=== PATIENT | female | born 1960 | race Caucasian/White ===

== ENCOUNTER 2024-03-22 09:04 | Outpatient (OUT) | payer MEDICAID, SELFPAY ==
--- NOTE | 2024-03-22 09:19 | MR_ITS ---
The [address] [address] Patient Name: ELADIA CORDOBA MRN: [facility]:[id number] date: 1960 Sex: F Assigned Patient Location: LAB Current Patient Location: LAB Accession/Order Number: [id number] Exam Date: 03/22/2024 09:55 Report Date: 03/22/2024 11:15 At the request of: ANDREAS FREED Procedure: MR head/brain wo/w con EXAM: MR head/brain wo/w con HISTORY: insomnia G47.00, visual hallucination R44.1 COMPARISON: None. Technique: Multiplanar T1-weighted, axial FLAIR, and susceptibility images were obtained without intravenous contrast. Following intravenous gadolinium-based contrast administration, axial T2-weighted, diffusion, and T1-weighted images (in multiple planes) were obtained. Contrast: 19 mL Dotarem Findings: There is no mass effect, midline shift, or evidence of intracranial hemorrhage. The ventricles are proportionate to the cerebral sulci. Normal major vascular intracranial flow-voids. There is [id number] generalized cerebral atrophy. Mild T2/FLAIR white matter high signal foci , primarily seen clustered in the left frontal lobe cunningham radiata, are nonspecific, however suggesting sequelae of small vessel ischemic change/leukoaraiosis. Postcontrast images demonstrate no abnormal intracranial enhancement. No abnormality of the skull marrow signal. The visualized portions of paranasal sinuses, and mastoid air cells are relatively clear. The orbits are grossly unremarkable. MR/MR head/brain wo/w con Impression: Age-related changes, as above, without acute intracranial pathology or abnormal enhancement. Electronically authenticated by: MATT VALENTINO Date: 03/22/2024 11:15
[2024-03-22 09:21] LABS: Basophils Percent Auto 0.9 % (0.2-2.0); Eosinophils Absolute Auto 0.3 10^3/uL (0.0-0.7); Eosinophils Percent Auto 7.2 % (0.9-7.0); Hematocrit 32.6 % (36.0-48.0); Immature Granulocytes Abs Auto 0.02 10^3/uL (0.00-0.03); Immature Granulocytes Pct Auto 0.4 % (0.0-0.5); Lymphocytes Absolute Auto 2.2 10^3/uL (1.2-3.8); Lymphocytes Percent Auto 47.4 % (20.5-60.0); Mean Corpuscular HGB Conc 30.7 g/dL (29.9-35.2); Mean Corpuscular Hemoglobin 27.3 pg (26.7-34.0); Mean Corpuscular Volume 89.1 fL (81.0-99.0); Mean Platelet Volume 8.7 fL (9.5-13.5); Monocytes Absolute Auto 0.3 10^3/uL (0.3-0.8); Monocytes Percent Auto 7.2 % (1.7-12.0); Neutrophils Absolute Auto 1.7 10^3/uL (1.4-6.5); Neutrophils Percent Auto 36.9 % (43.0-75.0); Platelet Count 333 10^3/uL (150-450); Red Blood Count 3.66 10^6/uL (4.20-5.40); Red Cell Distribution Width 14.2 % (11.0-15.0); White Blood Count 4.6 10^3/uL (4.0-11.0)
[2024-03-22 09:45] LABS: Alanine Aminotransferase 37 U/L (14-59); Albumin Globulin Ratio 0.7; Albumin Level 2.8 g/dL (3.4-5.0); Alkaline Phosphatase 118 U/L (46-116); Aspartate Amino Transferase 29 U/L (15-37); BUN Creatinine Ratio 11.2; Bilirubin Total 0.3 mg/dL (0.2-1.0); Calcium 8.8 mg/dL (8.5-10.1); Carbon Dioxide 26.1 mmol/L (21.0-32.0); Chloride 103 mmol/L (98-107); Chol HDL Ratio 3.5; Cholesterol 268 mg/dL (<=200); Estimated GFR (African America 42 (>=60); Estimated GFR (Non-African Ame 35 (>=60); Free T3 2.08 pg/mL (2.18-3.98); Globulin 3.8 g/dL; Glucose 187 mg/dL (74-106); HDL Cholesterol 77 mg/dL (40-60); Potassium 4.1 mmol/L (3.5-5.1); Sodium 136 mmol/L (136-145); Thyroid Stimulating Hormone 2.828 uIU/mL (0.358-3.740); Total Protein 6.6 g/dL (6.4-8.2); Triglycerides 220 mg/dL (<=150)
[2024-03-22 10:39] LABS: Estimated Average Glucose 180 mg/dL; Glycohemoglobin A1C 7.9 % (4.5-6.2)
[2024-03-23 10:09] LABS: Insulin 4.9 uIU/mL (2.6-24.9)
== END 2024-03-22 09:05 | disposition home or self-care (01) ==
PROVIDERS: PCP Family Medicine; Visit Provider Family Medicine
DX: G47.00 Insomnia, unspecified (principal); R44.2 Other hallucinations; R44.1 Visual hallucinations; R44.0 Auditory hallucinations; E78.5 Hyperlipidemia, unspecified; R73.9 Hyperglycemia, unspecified; Z12.12 Encounter for screening for malignant neoplasm of rectum; D64.9 Anemia, unspecified; E55.9 Vitamin D deficiency, unspecified
CPT/HCPCS: 36415; 70553; 80053; 80061; 82306; 83036; 83525; 83540; 84436; 84443; 84481; 85025; A9575

== ENCOUNTER 2024-05-24 14:51 | Outpatient (OUT) | payer MEDICAID, SELFPAY | END 2024-05-24 14:52 | disposition home or self-care (01) | LOC: PST 14:51 | PROVIDERS: PCP Family Medicine; Visit Provider Surgery | DX: Z01.818 Encounter for other preprocedural examination (principal); D50.9 Iron deficiency anemia, unspecified ==

== ENCOUNTER 2024-05-26 07:19 | Day surgery (SDC) | payer MEDICAID, SELFPAY ==
--- NOTE | 2024-05-26 | OP_ITS ---
OPERATION DATE: 05/26/2024 PREOPERATIVE DIAGNOSIS: Iron deficiency anemia. POSTOPERATIVE DIAGNOSIS: Distal esophagitis and poor colon prep. PROCEDURE: EGD and attempted colonoscopy. Patient was found to have formed stool within the rectum. Scope was unable to be advanced, so it will be rescheduled. SURGEON: Gerson Conrad M.D. ANESTHESIA: Monitored anesthesia care. ESTIMATED BLOOD LOSS: Zero. INDICATIONS AND CONSENT: Patient is a 63-year-old female with history of iron deficiency anemia. No GI complaints. She does take diclofenac daily. Indications, risks, benefits, alternatives of proceeding with EGD and colonoscopy were explained extensively to the patient, including the risks of bleeding, aspiration, esophageal/gastric or colonic perforation or anesthetic complications. All of her questions were answered. Informed consent was obtained. PROCEDURE: Patient brought to the operating room, placed in the left lateral decubitus position. Monitored anesthesia care was provided. Bite block was placed in the patient?s mouth. Scope was inserted into the oropharynx. Under direct visualization, it was advanced into the esophagus, past the cricopharyngeus, down to the small gastric pouch, which the gastric jejunostomy was widely patent. There was no ulceration or scarring. There was a very small gastric pouch. There was noted to be distal esophagitis without Eli?s changes with some exudate in the distal esophagus as well. The remainder of the esophagus was unremarkable. The scope was then withdrawn. Patient tolerated procedure well, was then positioned for colonoscopy. Rectal exam was performed, which revealed formed, hard stool within the rectum. This was removed. The scope was attempted to be advanced, but there was formed stool that prohibited advancement of the scope; therefore, that procedure was abandoned. She will be rescheduled for colonoscopy. Patient tolerated procedure well, was sent to recovery room in good condition. CC: Emmanuel Butt M.D. KATIE
[2024-05-26 07:35] VITALS: BP 166/96; PULSE 106; TEMP 36.9; O2SAT 98; BMI 35.8
[2024-05-26 07:45] LABS: Amphetamine Screen Urine NEGATIVE (NEGATIVE); Barbiturates Screen Urine NEGATIVE (NEGATIVE); Benzodiazepines Screen Urine NEGATIVE (NEGATIVE); Buprenorphine Screen Urine POSITIVE (NEGATIVE); Cannabinoid Screen Urine NEGATIVE (NEGATIVE); Cocaine Screen Urine NEGATIVE (NEGATIVE); Methadone Screen Urine NEGATIVE (NEGATIVE); Methamphetamines Screen Urine NEGATIVE (NEGATIVE); Opiate Screen Urine NEGATIVE (NEGATIVE); Oxycodone Screen Urine NEGATIVE (NEGATIVE); Phencyclidine Screen Urine NEGATIVE (NEGATIVE); Tricyclic Antidepressant Urine NEGATIVE (NEGATIVE)
[2024-05-26] MEDS: LACTATED RINGER'S SOLUTION 1,000 ML 50 ML IV (07:58)
[2024-05-26 10:02] VITALS: BP 117/89; PULSE 91; TEMP 36.2; O2SAT 97
[2024-05-26 10:17] VITALS: BP 141/95; PULSE 91
[2024-05-26 10:32] VITALS: BP 123/86; PULSE 77; O2SAT 99
== END 2024-05-26 10:32 | disposition home or self-care (01) ==
PROVIDERS: Anesthesiology; PCP Family Medicine; Visit Provider Surgery
PROC: (CPT 00813; principal; 2024-05-26 08:35)
DX: D50.9 Iron deficiency anemia, unspecified (principal); K20.90 Esophagitis, unspecified without bleeding; Z98.84 Bariatric surgery status; Z87.891 Personal history of nicotine dependence; E11.9 Type 2 diabetes mellitus without complications; Z79.84 Long term (current) use of oral hypoglycemic drugs; E03.9 Hypothyroidism, unspecified; E78.5 Hyperlipidemia, unspecified; F19.11 Other psychoactive substance abuse, in remission; E66.9 Obesity, unspecified; Z68.35 Body mass index [BMI] 35.0-35.9, adult
CPT/HCPCS: 00813; 43235; 45378; 80307; J2704

== ENCOUNTER 2024-09-02 14:14 | Outpatient (OUT) | payer MEDICAID, SELFPAY ==
--- NOTE | 2024-09-01 08:26 | V.VEINS.HP ---
Vital Signs 09/02/24 14:34 Height 5 ft 4 in Weight 97.522 kg BMI 36.9 Varicose Veins Patient is a 64 year old female in this day as a referral from Dr. Butt with c/o bilateral leg edema, tenderness and discoloration. 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 Patient has worn bilateral leg knee high compression stockings for >3years with some relief. Patient rates pain at a 5 on a scale of 1-10. Patient has no history of DVT, nor family history of varicose veins, nor history of varicose vein treatments. Troy Christina MD personally performed the services described in this documentation, as scribed by Ehsan Andrade RN in my presence and it is both accurate and complete. IEhsan RN, am scribing for, and in the presence of, Dr. Troy Peck and in the presence of the patient. . thigh: bilateral (symptoms right > left foot), knee: bilateral, calf: bilateral, ankle: bilateral and whelan: bilateral aching, cramping, dull and tender 5 7 months Worsened in recent months: Yes standing elevating extremities and compression stockings Reports muscle spasms of leg, erythema, fatigue, heaviness, limb pain, edema and leg edema History of lower extremity trauma: No Superficial thrombophlebitis: No Family history of varicose veins: no Has patient had previous lower extremity venous surgery: No Patient has previously received the following treatment(s) for lower extremity varicose veins: Reports none Does patient have a history of : yes Does patient intend to have future pregnancies: no Has patient had lower extremity venous scan with relux testing: No Support hose used: Yes Problems walking or doing physical activity: Yes How does it affect you: painful ambulation resulting in frequent breaks Review of Systems ROS Narrative Troy Christina MD personally performed the services described in this documentation, as scribed by Ehsan Andrade RN in my presence and it is both accurate and complete. Ehsan Christina RN, am scribing for, and in the presence of, Dr. Troy Peck and in the presence of the patient. Status of ROS 10 or more systems reviewed and unremarkable except as noted in history and below Cardiovascular Reports: edema Integumentary/Breast Reports: itching, redness, skin pain, skin tenderness, skin swelling and changes in skin color Neurological Reports: weakness in extremities Hematologic/Lymphatic Reports: easy bruising and easy bleeding PFSH PFSH Medical History (Updated 09/02/24 @ 14:44 by Ehsan Andrade) Bilateral leg edema ?R60.0 - Localized edema (ICD-10) Vitamin B12 deficiency ?E53.8 - Deficiency of other specified B group vitamins (ICD-10) Visual hallucinations ?R44.1 - Visual hallucinations (ICD-10) Olfactory hallucinations ?R44.2 - Other hallucinations (ICD-10) Narcotic abuse ?F11.10 - Opioid abuse, uncomplicated (ICD-10) Iron deficiency anemia ?D50.9 - Iron deficiency anemia, unspecified (ICD-10) Insomnia ?G47.00 - Insomnia, unspecified (ICD-10) Impaired renal function ?N28.9 - Disorder of kidney and ureter, unspecified (ICD-10) Hypothyroidism ?E03.9 - Hypothyroidism, unspecified (ICD-10) Hypercholesterolemia ?E78.00 - Pure hypercholesterolemia, unspecified (ICD-10) Nephrolithiasis ?N20.0 - Calculus of kidney (ICD-10) Fibrocystic breast ?N60.19 - Diffuse cystic mastopathy of unspecified breast (ICD-10) Diabetes ?E11.9 - Type 2 diabetes mellitus without complications (ICD-10) Obesity ?E66.9 - Obesity, unspecified (ICD-10) Auditory hallucination ?R44.0 - Auditory hallucinations (ICD-10) Anxiety and depression ?F41.9 - Anxiety disorder, unspecified (ICD-10) ?F32.A - Depression, unspecified (ICD-10) Anemia ?D64.9 - Anemia, unspecified (ICD-10) Surgical History (Updated 07/03/24 @ 09:48 by Celina Muhammad) H/O cystoscopy ?Z98.890 - Other specified postprocedural states (ICD-10) H/O gastric bypass ?Z98.84 - Bariatric surgery status (ICD-10) Family History (Updated 05/21/24 @ 07:57 by Sol Rea, MIKY) Other Malignant neoplasm of breast (female) Parkinsons disease Social History (Updated 05/24/24 @ 14:18 by Sol Rea RN) Within the past year, how often did you have a drink containing alcohol: never Score interpretation: A score less than 3 is consistent with normal alcohol consumption. Smoking status: Former smoker Second hand tobacco smoke exposure: Yes Non-prescribed substance use: denies use Non-prescribed substance use details: does have previous narcotic abuse history Previous occupational history: homemaker Highest level of school completed/degree received: high school graduate Meds Home Medications and Allergies Home Medications ?Medication ?Instructions ?Recorded ?Confirmed ?Type buprenorphine 8 mg-naloxone 2 mg 1 film buccal DAILY 05/21/24 07/03/24 History sublingual film (Suboxone) bupropion HCl 150 mg 24 hr tablet, 150 mg PO BID 05/21/24 07/03/24 History extended release diclofenac sodium 75 mg 75 mg PO BID PRN pain 05/21/24 07/03/24 History tablet,delayed release ferrous sulfate 325 mg (65 mg 325 mg PO BID 05/21/24 07/03/24 History iron) tablet (FeroSul) metformin 500 mg tablet 500 mg PO BID 05/21/24 07/03/24 History olanzapine 10 mg tablet (Zyprexa) 10 mg PO DAILY 05/21/24 07/03/24 History venlafaxine 150 mg 150 mg PO DAILY 05/21/24 07/03/24 History capsule,extended release 24 hr Allergies Allergy/AdvReac Type Severity Reaction Status Date / Time No Known Drug Allergies Allergy Verified 05/26/24 07:56 Exam Narrative Exam Narrative: Redness noted to right mid lower leg anterior to posterior, patient states area often seeps Troy Christina MD personally performed the services described in this documentation, as scribed by Ehsan Andrade RN in my presence and it is both accurate and complete. Ehsan Christina RN, am scribing for, and in the presence of, Dr. Troy Peck and in the presence of the patient. Constitutional Documenting provider has reviewed patient's vital signs: yes Common normals: oriented x3 Nutritional appearance: overweight Cardio Peripheral pulses: posterior tibial pulses present and dorsalis pedis pulses present Extremity Common normals: normal capillary refill General: calf tenderness and edema Right lower extremity: lower leg Right lower leg: inspection and palpation Left lower extremity: lower leg Left lower leg: inspection and palpation Neuro Common normals: oriented x3 Assessment and Plan Assessment and Plan Plan Patient to Troy Christina MD personally performed the services described in this documentation, as scribed by Ehsan Andrade RN in my presence and it is both accurate and complete. I, Ehsan Andrade RN, am scribing for, and in the presence of, Dr. Troy Peck and in the presence of the patient.
--- NOTE | 2024-09-01 08:27 | W.VEIN ---
Discharge Plan Discharge Disposition: Home, Self-Care Follow Up Appointments: f/u as necessary per Dr. Butt Print Language: Bengali Discharge Date/Time: 09/02/24 15:27
--- NOTE | 2024-09-02 14:27 | VEIN_ITS ---
Patient Name: ELADIA CORDOBA MR#: [id number] : 1960 Exam Date: 09/02/2024 Ordering Doctor: DR Emmanuel Butt . RADIOLOGY REPORT PROCEDURE: VC EXT VENOUS REFLUX TRESA LMTD COMPARISON: None. INDICATIONS: R60.0 Edema TECHNIQUE: Duplex imaging of the lower extremity to assess the deep and superficial venous system for the presence of deep or superficial venous incompetence and to document the location and severity of disease. The study includes evaluation of the great saphenous vein (GSV), anterior accessory saphenous vein (AASV) and small saphenous vein (SSV). Patient scanned in reverse Trendelenburg and standing. FINDINGS: RIGHT LOWER EXTREMITY: Saphenofemoral Junction Reflux: Yes 6.8mm 1.3 sec GSV: Diam (mm) Reflux/ Time (sec) Proximal Thigh 7.1 Yes 1.0 Mid Thigh 5.4 No Distal Thigh 4.7 Yes 0.4 Prox Calf 4.3 No Mid Calf 3.6 Yes 0.6 Saphenopopliteal Junction Reflux: 4.5mm No SSV: Proximal Calf 4.8 Yes 0.3 Mid Calf 4.2 No AASV: Proximal Thigh 4.6 Yes 0.5 Mid Thigh 3.1 Yes 0.4 Distal Thigh Thrombi: No acute or chronic thrombus. Compressibility: Normal. Flow: Minimal deep venous reflux. Preforator: No significant perforators. Tech Note: Marked edema noted in lower leg. Incompetent varicose vein proximal medial lower leg measures 4.3 mm with 0.7s reflux. Varicose vein mid medial thigh measures 4.1 mm with 0.6s reflux. LEFT LOWER EXTREMITY: Saphenofemoral Junction Reflux: Yes 8.7 mm 0.6 sec GSV: Diam (mm) Reflux/Time (sec) Proximal Thigh 9.9 Yes 0.8 Mid Thigh 4.7 Yes 0.8 Distal Thigh 4.9 Yes 0.5 Prox Calf 5.0 No Mid Calf 2.2 Yes 0.3 Saphenopopliteal Junction Relux: 2.4 mm Yes 1.4 SSV: Proximal Calf 2.0 Yes 0.4 Mid Calf 3.0 No AASV: Proximal Thigh 5.5 Yes 4.8 Mid Thigh 3.3 Yes 0.5 Distal Thigh Thrombi: No acute or chronic thrombus. Compressibility: Normal. Flow: Minimal deep venous reflux. Qa Software Test Engineer: No significant perforators. Tech Note: Marked edema noted in lower leg. Duplicate femoral vein. Incompetent varicose vein distal medial thigh measures 5.2 mm with 0.5s reflux. CONCLUSION: 1. Mild bilateral great saphenous vein reflux with dilatation and saphenofemoral junction reflux 2. Moderate anterior accessory saphenous vein with dilatation 3. Bilateral varicose veins Dictated by: Troy Peck MD on 09/02/2024 at 16:10 Approved by: Troy Peck MD on 09/02/2024 at 16:23
[2024-09-02 14:34] VITALS: BMI 36.9
== END 2024-09-02 15:27 | disposition home or self-care (01) ==
LOC: VC 14:20
PROVIDERS: PCP Family Medicine; Visit Provider Family Medicine
DX: R60.0 Localized edema (principal)
CPT/HCPCS: 93970

== ENCOUNTER 2025-07-02 18:25 | Emergency (ER) | payer MEDICAID, SELFPAY ==
--- OUTSIDE RECORDS SUMMARY | 2025-03-02 10:15 | XMS_ITS ---
Author Organization The [facility] in [place] Address [address] [place] [address] Care Team Providers Care Residential Care Officer Name Role Phone Kole Butt Primary Care Provider Allergies No Known Allergies REASON FOR VISIT red sore leg Medications Medication SIG (Take, Route, Frequency, Duration) Notes Start Date End Date Status Cephalexin 500 MG 2 tabs Orally bid fo r 10 days 03/02/2025 Active ZyPREXA 10 MG 1 tablet Orally Once a day for 30 days 02/20/2024 Active Venlafaxine HCl ER 150 mg TAKE 1 CAPSULE BY MOUTH ONCE DAILY for 90 Active Valium 5 MG 1-2 tablet Orally on ce for 1 days 03/19/2024 Active Trulicity 0.75 MG/0.5ML Inject 0.5ml Sub cutaneous once weekly for 28 days Active Doxycycline Monohydrate 100 MG 1 capsule Orally bid for 10 days 03/02/2025 Active Triamcinolone Acetonide 0.1 % 1 application Externally Twice a day for 30 02/20/2024 Active Suboxone 8-2 MG 1 film under the ton daya and allow to dissolve Sublingual Once a day Active metFORMIN HCl 500 mg TAKE 1 TABLET BY MO UTH TWICE DAILY for 30 Active FeroSul 325 (65 Fe) MG TAKE 1 TABLET BY MOUTH TWICE DAILY for 30 Active Cefdinir 300 MG 2 capsule Orally onc e a day for 10 days 08/19/2024 Active buPROPion HCl ER (SR) 150 MG 1 tablet Orally twice daily for 30 days 08/27/2023 Active Rexulti 2 MG 1 tablet Orally Once a day for 30 day(s) 03/02/2025 Active Diclofenac Sodium 75 MG 1 tablet as need ed Orally Twice a day for 30 days Active Cyanocobalamin 1000 MCG/ML inject 1ml SQ once a month Active Accu-Chek Guide - as directed In Vitro bdi 024 Active Social History Tobacco Use: Social History Observation Description Date Details (start date - stop date) Former Smoker NA - 12/31/1995 Tobacco Use/Smoking Question Answer Notes Patient is a former smoker When did you stop smoking? 12/31/1995 How long has it been since you last smoked? > 10 years AUDIT-C (Standard) Question Answer Notes Did you have a drink containing alcohol in the p ast year? No Points 0 Interpretation Negative Vital Signs Blood pressure systolic 138 mm Hg 03/02/20 25 Blood pressure diastolic 82 mm Hg 025 Height 64 in 03/02/2025 Weight 226.0 lbs 03/02/2025 BMI 38.79 kg/m2 03/02/2025 Encounters Encounter Location Date Provider Diagnosis [address] [place] [address] 03/02/2025 Kole Butt Insomnia G47.00 and Anxiety and depression F41.9 Assessments Encounter Date Diagnosis (ICD Code) Assessment Notes Treatment Notes Treatment Clinical Notes Section Notes 03/02/2025 Insomnia (ICD-10 - G47.00) 03/02/2025 Anxiety and depression (ICD-10 - F41.9) Plan Of Treatment Medication Medication Name Sig Start Date Stop Date Notes Cephalexin 500 MG 2 tabs Orally bid fo r 10 days 03/02/2025 Doxycycline Monohydrate 100 MG 1 capsule Orally bid for 10 days 03/02/2025 Rexulti 2 MG 1 tablet Orally Once a day for 30 day(s) 03/02/2025 Progress Notes * Effie CORDOBA ADOB:1960 (64 yo F)Acc No.[id number]:03/02/2025 Progress Note Patient: Effie STOVER Provider: Jacek Butt ([facility])MD :1960 A ge:64 Y S ex:Female Date:03/02/2025 Address:[address] [place] [address] [address], [place], [id number] Check In:02:03 PM ESTCheck O ut:02:59 PM EST Subjective: * Chief Complaints: * R ed sore leg * HPI: D epression Screening: PHQ-2 (2015 Edition) L ittle interest or pleasure in doing things??Several days F eeling down, depressed, or hopeless? S everal T otal Score 2 not tapan to tolerate amauri olazapine - needs change to rexulti. D epression Screening: PHQ-9 L ittle interest or pleasure in doing things?Several days F eeling down, depressed, or hopeless S everal T rouble falling or staying asleep, or sleeping too much M ore than half the days F eeling tired or having little energy M ore than half the days P oor appetite or overeating M ore than half the days F eeling bad about yourself or that you are a failure, or have let yourself or your family down S ever T rouble concentrating on things, such as reading the newspaper or watching television N ot at all M oving or speaking so slowly that other people could have noticed; or the opposite, being so fidgety or restless that you have been moving around a lot more than usual S everal T houghts that you would be better off or of hurting yourself in some way N ot at all T otal Score 1 0 I nterpretation M oderate Depression * ROS: E ENT: hearing changes d enies. v isual changes d enies.?non-healing mouth sores d enies. s wollen glands or neck lumps d enies. h oarseness d enies. s ore throat d enies. d ifficulty swallowing d enies. n ose bleeds d enies. n cammie congestion d enies. e ar ache d enies. e ar discharge?denies. r inging in ears d enies. l ight sensitivity d enies. e ye pain d enies. b lurring d enies. e ye irritation d enies. d ouble vision d enies.?vision loss d enies. G eneral/Constitutional: Sweats: D enies. F atigue d enies. S leep problems d enies. A norexia d enies. M alaise d enies. W eight loss d enies.?Fatigue or Weakness d enies. F ever or Chills d enies. C ardiovascular: Shortness of Breath w/lying flat d enies. L ightheadedness/dizziness d enies. C hest tightness/ heavy pressure d enies. S welling of legs, ankles, or feet d enies. W aking up with shortness of breath d enies. C hest pain denies. P alpitations d enies. W eight gain d enies. R espiratory: Chronic or frequent cough d enies. C oughing up blood?denies. D ifficulty breathing d enies. P roductive cough d enies. S noring?denies. S hortness of breath that awakens from sleep (PND) d enies. C hest pain d enies. S putum production d enies. W heezing d enies. M usculoskeletal: Joint pain d enies. J oint Fluid d enies. B ack pain d enies. K nee pain d enies. N branden pain d enies. J oint Stiffness d enies. M uscle cramps d enies. W eakness of muscles d enies. A rthritis d enies. M uscle aches d enies. P ain in shoulder(s) d enies. S wollen joints d enies. * Active Problem List G47.00 Insomnia Modified On:02/20/2024/U Status:confirmed M25.50 Arthralgia Modified On:07/25/2023/U Status:confirmed N20.0 Kidney stones Modified On:07/25/2023/U Status:confirmed R60.0 Edema leg Modified On:07/25/2023/U Status:confirmed N60.19 Fibrocystic breast Modified On:07/25/2023/U Status:confirmed F11.10 Narcotic abuse Modified On:07/25/2023/U Status:confirmed F41.9 Anxiety and depressi on Modified On:07/25/2023U Status:confirmed E78.00 Hypercholesteremia Modified On:07/25/2023U Status:confirmed E11.9 Controlled type 2 di abetes mellitus Modified On:07/25/2023U Status:confirmed G47.00 Insomnia, unspecifie d Modified On:03/24/2023U Status:confirmed R44.2 Olfactory hallucinat ion Modified On:02/20/2024U Status:confirmed R44.1 Visual hallucination Modified On:02/20/2024U Status:confirmed R44.0 Auditory hallucinati on Modified On:02/20/2024 Status:confirmed E03.9 Hypothyroidism, unsp ecified Modified On:03/22/2024 Status:confirmed K20.90 Esophagitis Modified On:05/31/2024U Status:confirmed I87.2 Venous reflux Modified On:09/03/2024 Status:confirmed * Medical History: * Surgical History: C ystoscopy with stent, Dr. Arroyo 02/06/18 Colonoscopy and EGD- Dr. Conrad 05/26/2024 * Hospitalization/Major Diagno stic Procedure: D enies Past Hospitalization * Family History: F ather: . M other: , breast cancer, diagnosed with Other malignant neoplasm of unspecified site. B rother(s): alive. S on(s): alive. D ángel(s): alive. 1 brother(s) . 1 son(s) , 1 daughter(s) - healthy. . * Social History: T obacco Use: T obacco Use/Smoking P atient is a f ormer smoker W hen did you stop smoking? 0 12/31/1995 H ow long has it been since you last smoked??> 10 years D rug/Alcohol: A DESI-C (Standard) D id you have a drink containing alcohol in the past year? N o P oints 0 I nterpretation N egative * Medications: T akingAccu-Chek Guide(Glucose Blood) - Strip as directed In Vitro bdi buPROPion HCl ER (SR) 150 MG Tablet Extended Release 12 Hour 1 tablet Orally twice daily Cefdinir 300 MG Capsule 2 capsule Orally once a day Cyanocobalamin 1000 MCG/ML Solution inject 1ml SQ once a month Diclofenac Sodium 75 MG Tablet Delayed Release 1 tablet as needed Orally Twice a day FeroSul(Ferrous Sulfate) 325 (65 Fe) MG Tablet TAKE 1 TABLET BY MOUTH TWICE DAILY metFORMIN HCl 500 mg Tablet TAKE 1 TABLET BY MOUTH TWICE DAILY Suboxone(Buprenorphine HCl-Naloxone HCl) 8-2 MG Film 1 film under the tongue and allow to dissolve Sublingual Once a day Triamcinolone Acetonide 0.1 % Cream 1 application Externally Twice a day Trulicity(Dulaglutide) 0.75 MG/0.5ML Solution Pen-injector Inject 0.5ml Subcutaneous once weekly Valium(diazePAM) 5 MG Tablet 1-2 tablet Orally once Venlafaxine HCl ER 150 mg Capsule Extended Release 24 Hour TAKE 1 CAPSULE BY MOUTH ONCE DAILY ZyPREXA 10 MG Tablet 1 tablet Orally Once a day Medication List reviewed and reconciled with the patientTaking Accu-Chek Guide(Glucose Blood) - Strip as directed In Vitro bdi Taking buPROPion HCl ER (SR) 150 MG Tablet Extended Release 12 Hour 1 tablet Orally twice daily Taking Cefdinir 300 MG Capsule 2 capsule Orally once a day Taking Cyanocobalamin 1000 MCG/ML Solution inject 1ml SQ once a month Taking Diclofenac Sodium 75 MG Tablet Delayed Release 1 tablet as needed Orally Twice a day Taking FeroSul(Ferrous Sulfate) 325 (65 Fe) MG Tablet TAKE 1 TABLET BY MOUTH TWICE DAILY Taking metFORMIN HCl 500 mg Tablet TAKE 1 TABLET BY MOUTH TWICE DAILY Taking Suboxone(Buprenorphine HCl-Naloxone HCl) 8-2 MG Film 1 film under the tongue and allow to dissolve Sublingual Once a day Taking Triamcinolone Acetonide 0.1 % Cream 1 application Externally Twice a day Taking Trulicity(Dulaglutide) 0.75 MG/0.5ML Solution Pen-injector Inject 0.5ml Subcutaneous once weekly Taking Valium(diazePAM) 5 MG Tablet 1-2 tablet Orally once Taking Venlafaxine HCl ER 150 mg Capsule Extended Release 24 Hour TAKE 1 CAPSULE BY MOUTH ONCE DAILY Taking ZyPREXA 10 MG Tablet 1 tablet Orally Once a day Medication List reviewed and reconciled with the patient * Allergies: N .K.D.A.no[Allergies Verified] Objective: * Vitals: W t:226.0lbs, Ht: 64 in, BP:138/82mm Hg, BMI:38.79Index, Ht-cm: 162.56 cm, Wt-k.51 kg. * Examination: P hysical Exam: GENERAL: w ell developed, well nourished, in no acute distress. HEAD: n ormocephalic/atraumatic. EYES: p upils equal, round and reactive to light, conjunctivae and sclerae normal. EARS: n o deformity or lesion of external ear, canals and TM appear normal bilaterally, TM's intact, not inflamed with normal light reflex, hearing grossly normal to conversational speech. NOSE: n o deformity, discharge, inflammation, or lesions.? MOUTH: m ucous membranes moist, normal oropharynx and posterior pharynx without lesions or exudates, tongue normal, dentition normal. NECK: n branden supple, no masses or palpable cervical nodes, trachea midline, thyroid without nodules, masses, tenderness, or enlargement. CHEST: n o chest wall deformity, no chest wall tenderness.? LUNGS: n ormal respiratory effort and clear to auscultation, no wheezes, rales, or rhonchi, good air exchange. CARDIO: r egular rate and rhythm, normal S1 and S2, nor murmur, rub, or gallop. PULSES: n ormal capillary refill. ABDOMEN: s oft, non-distended, non-tender, no masses. MUSCULOSKELETAL: n o deformity or scoliosis noted, normal range of motion, joints normal, no erythema, edema, effusion, or ecchymosis. EXTREMITY: n o clubbing, cyanosis, edema, or deformity with normal ROM in both upper and lower bilateral extremities. NEUROLOGIC: g rossly normal. SKIN: n o rashes, ulcerations, or suspicious lesions. LYMPH NODES: n o cervical adenopathy, nodes normal. MENTAL STATUS: a lert and oriented x3, normal mood and affect. Assessment: * Assessment: 1. I nsomnia - G47.00 (Primary) 2 . A nxiety and depression - F41.9 ? Plan: * Treatment: * Procedure Codes: * Preventive Medicine: Screenings/Counseling: B MN ACTION PLAN Above Normal BMI Follow-up D ietary management education, guidance, and counseling * * Sign off status: Completed Visit Status: C HK (Check Out) true * Provider: Jacek Butt ([facility])MD Date: 0 03/02/2025 Generated for Mason haro/Chetan/Marcusitting on: 0 07/02/2025 06:33 PM EDT History and Physical Notes * HPI (History of Present Illness) Category Sub-Category Detail Notes Category Not es Depression Screening PHQ-9 Little inte rest or pleasure in doing things: Several days Feeling down, depressed, or hopeless: Se veral days Trouble falling or staying a sleep, or sleeping too much: More than half the days Feeling tired or having little energy: M ore than half the days Poor appetite or overeating: More than h chcf the days Feeling bad about yourself o r that you are a failure, or have let yourself or your family down: Several days Trouble concentrating on thi ngs, such as reading the newspaper or watching television: Not at all Moving or speaking so slowly that other people could have noticed; or the opposite, being so fidgety or restless that you have been moving around a lot more than usual: Several days Thoughts that you would be b tanya off or of hurting yourself in some way: Not at all Total Score: 10 Interpretation: Moderate Depression Depression Screening PHQ-2 (2015 Edition) Little interest or pleasure in doing things?: Several days not tapan to tolerate amauri olazapine - needs change to rexulti Feeling down, depressed, or hopeless?: S everal days Total Score: 2 Examination Category Sub-Category Detail Notes Category Not es Physical Exam GENERAL: well developed, well nourished, in no acute distress HEAD: normocephalic/atraum atic EYES: pupils equal, round and reactive to light, conjunctivae and sclerae normal EARS: no deformity or lesi on of external ear, canals and TM appear normal bilaterally, TM's intact, not inflamed with normal light reflex, hearing grossly normal to conversational speech NOSE: no deformity, discha rge, inflammation, or lesions MOUTH: mucous membranes valentin st, normal oropharynx and posterior pharynx without lesions or exudates, tongue normal, dentition normal NECK: neck supple, no mass es or palpable cervical nodes, trachea midline, thyroid without nodules, masses, tenderness, or enlargement CHEST: no chest wall deform ity, no chest wall tenderness LUNGS: normal respiratory e ffort and clear to auscultation, no wheezes, rales, or rhonchi, good air exchange CARDIO: regular rate and rhy thm, normal S1 and S2, nor murmur, rub, or gallop PULSES: normal capillary ref ill ABDOMEN: soft, non-distended, non-tender, no masses RECTAL: MUSCULOSKELETAL: no deformity or scol iosis noted, normal range of motion, joints normal, no erythema, edema, effusion, or ecchymosis EXTREMITY: no clubbing, cyanosi s, edema, or deformity with normal ROM in both upper and lower bilateral extremities NEUROLOGIC: grossly normal SKIN: no rashes, ulceratio ns, or suspicious lesions LYMPH NODES: no cervical adenopat hy, nodes normal MENTAL STATUS: alert and oriented x 3, normal mood and affect
--- OUTSIDE RECORDS SUMMARY | 2025-03-16 10:50 | XMS_ITS ---
Author Organization The [facility] in [place] Address [address] [place] [address] Care Team Providers Care Life Skills Coordinator Name Role Phone Kole uBtt Primary Care Provider REASON FOR VISIT cellulitis- Rexulti Medications Medication SIG (Take, Route, Frequency, Duration) Notes Start Date End Date Status Doxycycline Monohydrate 100 MG 1 capsule Orally bid for 14 days 03/02/2025 Active Cephalexin 500 MG 2 tabs Orally bid fo r 14 days 03/02/2025 Active Rexulti 4 MG 1 tablet Orally Once a day for 30 days 03/02/2025 Active Encounters Encounter Location Date Provider Diagnosis [address] [address] 03/16/2025 Kole Butt Insomnia G47.00 Assessments Encounter Date Diagnosis (ICD Code) Assessment Notes Treatment Notes Treatment Clinical Notes Section Notes 03/16/2025 Insomnia (ICD-10 - G47.00) Plan Of Treatment Medication Medication Name Sig Start Date Stop Date Notes Doxycycline Monohydrate 100 MG 1 capsule Orally bid for 14 days 03/02/2025 Cephalexin 500 MG 2 tabs Orally bid fo r 14 days 03/02/2025 Rexulti 4 MG 1 tablet Orally Once a day for 30 days 03/02/2025 Progress Notes * Rosalie CORDOBA ADOB:1960 (64 yo F)Acc No.[id number]:03/16/2025 Patient: Rosalie STOVER :1960 A ge:64 Y S ex:Female Address:[address] [place] [address], [place], [address] * Refills Refill Rexulti Tablet, 4 MG, Orally, 30, 1 tablet, Once a day, 30 days, Refills=11 Refill Doxycycline Monohydrate Capsule, 100 MG, Orally, 28 Capsule, 1 capsule, bid, 14 days, Refills=0 Refill Cephalexin Tablet, 500 MG, Orally, 56 Tablet, 2 tabs, bid, 14 days, Refills=0 * true * Date: Generated for Mason haro/Chetan/Marcusitting on: 0 07/02/2025 06:34 PM EDT
--- OUTSIDE RECORDS SUMMARY | 2025-04-14 11:23 | XMS_ITS ---
Author Organization The [facility] in [place] Address [address] [place] [address] Care Team Providers Care Career Services Officer Name Role Phone Kole Butt Primary Care Provider REASON FOR VISIT Refill Medications Medication SIG (Take, Route, Fr equency, Duration) Notes Start Date End Date Status metFORMIN HCl 500 MG 1 tablet with a zan l Orally twice a day for 30 days Active FeroSul 325 (65 Fe) MG 1 tablet Orally t wice a day for 30 days Active Encounters Encounter Location Date Provider Diagnosis [address] [address] 04/14/2025 Kole Butt Plan Of Treatment Medication Medication Name Sig Start Date Stop Date Notes metFORMIN HCl 500 MG 1 tablet with a zan l Orally twice a day for 30 days FeroSul 325 (65 Fe) MG 1 tablet Orally t wice a day for 30 days Progress Notes * Effie CORDOBA ADOB:1960 (64 yo F)Acc No.[id number]:04/14/2025 Patient: Uma Effie GARCIA :1960 A ge:64 Y S ex:Female Address:[address] [place] [address] [address], [place], [address] * Refills Refill metFORMIN HCl Tablet, 500 MG, Orally, 60 Tablet, 1 tablet with a meal, twice a day, 30 days, Refills=11 Refill FeroSul Tablet, 325 (65 Fe) MG, Orally, 60 Tablet, 1 tablet, twice a day, 30 days, Refills=11 * true * Date: Generated for Mason haro/Chetan/[place]and[place] on: 0 07/02/2025 06:33 PM EDT
--- OUTSIDE RECORDS SUMMARY | 2025-07-02 18:34 | XMS_ITS | Patient Health Record ---
Author Organization [facility] in [place] Address [address] [place] [address] Care Team Providers Care Ocularist Name Role Phone Daquan Kole Primary Care Provider Allergies No Known Allergies Results Component Value Reference Range Notes UA DIP NONAUTO WO MICRO (810 02) - IN OFFICE Reviewed date:09/02/2024 08:43:03 PM Interpretation: Performing Lab: Notes/Report: COLOR yellow CLARITY cloudy GLUCOSE NEG BILIRUBIN NEG KETONE POS SPECIFIC GRAVITY 1.015 BLOOD NEG PH 5.0 PROTEIN POS UROBILINOGEN 0.2 NITRITE NEG LEUKOCYTE ESTERASE POS VC EXT Venous Reflux TRESA LMT D Reviewed date:09/02/2024 08:43:03 PM Interpretation: Performing Lab: Notes/Report: Source Facility: [place] [address] [place] [address] Vein Report Signed Patient: ELADIA CORDOBA MR#: [id number] : 1960 Acct:[id number] Age/Sex: 64 / F ADM Date: 09/02/24 Loc: VC Attending Dr: Emmanuel Butt M.D. Ordering Physician: Emmanuel Butt M.D. Date of Service: 09/02/24 Procedure(s): VC EXT Venous Reflux TRESA LMTD Accession Number(s): [id number] cc: Emmanuel Butt M.D. Patient Name: ELADIA CORDOBA MR#: [id number] : 1960 Exam Date: 09/02/2024 Ordering Doctor: DR Emmanuel Butt . RADIOLOGY REPORT PROCEDURE: VC EXT VENOUS REFLUX TRESA LMTD COMPARISON: None. INDICATIONS: R60.0 Edema TECHNIQUE: Duplex imaging of the lower extremity to assess the deep and superficial venous system for the presence of deep or superficial venous incompetence and to document the location and severity of disease. The study includes evaluation of the great saphenous vein (GSV), anterior accessory saphenous vein (AASV) and small saphenous vein (SSV). Patient scanned in reverse Trendelenburg and standing. FINDINGS: RIGHT LOWER EXTREMITY: Saphenofemoral Junction Reflux: Yes 6.8mm 1.3 sec GSV: Diam (mm) Reflux/ Time (sec) Proximal Thigh 7.1 Yes 1.0 Mid Thigh 5.4 No Distal Thigh 4.7 Yes 0.4 Prox Calf 4.3 No Mid Calf 3.6 Yes 0.6 Saphenopopliteal Junction Reflux: 4.5mm No SSV: Proximal Calf 4.8 Yes 0.3 Mid Calf 4.2 No AASV: Proximal Thigh 4.6 Yes 0.5 Mid Thigh 3.1 Yes 0.4 Distal Thigh Thrombi: No acute or chronic thrombus. Compressibility: Normal. Flow: Minimal deep venous reflux. Preforator: No significant perforators. Tech Note: Marked edema noted in lower leg. Incompetent varicose vein proximal medial lower leg measures 4.3 mm with 0.7s reflux. Varicose vein mid medial thigh measures 4.1 mm with 0.6s reflux. LEFT LOWER EXTREMITY: Saphenofemoral Junction Reflux: Yes 8.7 mm 0.6 sec GSV: Diam (mm) Reflux/Time (sec) Proximal Thigh 9.9 Yes 0.8 Mid Thigh 4.7 Yes 0.8 Distal Thigh 4.9 Yes 0.5 Prox Calf 5.0 No Mid Calf 2.2 Yes 0.3 Saphenopopliteal Junction Relux: 2.4 mm Yes 1.4 SSV: Proximal Calf 2.0 Yes 0.4 Mid Calf 3.0 No AASV: Proximal Thigh 5.5 Yes 4.8 Mid Thigh 3.3 Yes 0.5 Distal Thigh Thrombi: No acute or chronic thrombus. Compressibility: Normal. Flow: Minimal deep venous reflux. Nutrition Program Instructor: No significant perforators. Tech Note: Marked edema noted in lower leg. Duplicate femoral vein. Incompetent varicose vein distal medial thigh measures 5.2 mm with 0.5s reflux. CONCLUSION: 1. Mild bilateral great saphenous vein reflux with dilatation and saphenofemoral junction reflux 2. Moderate anterior accessory saphenous vein with dilatation 3. Bilateral varicose veins Dictated by: Troy Peck MD on 09/02/2024 at 16:10 Approved by: Troy Peck MD on 09/02/2024 at 16:23 Dictated By: Troy Peck M.D. Signed By: 09/02/244 DD/ 22 TD/TT: [employer]ter: [place] [address] Vein Report Signed Patient: ELADIA CORDOBA MR#: [id number] : 1960 Acct:[id number] Age/Sex: 64 / F ADM Date: 09/02/24 Loc: VC Attending Dr: Emmanuel Butt M.D. Ordering Physician: Emmanuel Butt M.D. Date of Service: 09/02/24 Procedure(s): VC EXT Venous Reflux TRESA LMTD Accession Number(s): [id number] cc: Emmanuel Butt M.D. Patient Name: ELADIA CORDOBA MR#: [id number] : 1960 Exam Date: 09/02/2024 Ordering Doctor: DR Emmanuel Butt . RADIOLOGY REPORT PROCEDURE: VC EXT VE NOUS REFLUX TRESA LMTD COMPARISON: None. INDICATIONS: R60.0 Edema TECHNIQUE: Duplex im aging of the lower extremity to assess the deep and superficial venous s ystem for the presence of deep or superficial venous incompetence and to document the location and severity of disease. The study includes evaluation of the great saphenous vein (GSV), anterior accessory saphenous vein (AASV ) and small saphenous vein (SSV). Patient scanned in reverse Trendelenbur g and standing. FINDINGS: RIGHT LOWER EXTREMITY: Saphenofemoral Junct ion Reflux: Yes 6.8mm 1.3 sec GSV: Diam (mm) Reflux/ Time (sec) Proximal Thigh 7.1 Yes 1.0 Mid Thigh 5.4 No Distal Thigh 4.7 Yes 0.4 Prox Calf 4.3 No Mid Calf 3.6 Yes 0.6 Saphenopopliteal Florencio ction Reflux: 4.5mm No SSV: Proximal Calf 4.8 Yes 0.3 Mid Calf 4.2 No AASV: Proximal Thigh 4.6 Yes 0.5 Mid Thigh 3.1 Yes 0.4 Distal Thigh Thrombi: No acute or chronic thrombus. Compressibility: Normal. Flow: Minimal deep venous reflux. Preforator: No significant perforators. Tech Note: Marked ed denia noted in lower leg. Incompetent varicose vein proximal medial lower leg zan sures 4.3 mm with 0.7s reflux. Varicose vein mid medial thigh measures 4.1 m m with 0.6s reflux. LEFT LOWER EXTREMITY: Saphenofemoral Junct ion Reflux: Yes 8.7 mm 0.6 sec GSV: Diam (mm) Reflux/Time (sec) Proximal Thigh 9.9 Yes 0.8 Mid Thigh 4.7 Yes 0.8 Distal Thigh 4.9 Yes 0.5 Prox Calf 5.0 No Mid Calf 2.2 Yes 0.3 Saphenopopliteal Florencio ction Relux: 2.4 mm Yes 1.4 SSV: Proximal Calf 2.0 Yes 0.4 Mid Calf 3.0 No AASV: Proximal Thigh 5.5 Yes 4.8 Mid Thigh 3.3 Yes 0.5 Distal Thigh Thrombi: No acute or chronic thrombus. Compressibility: Normal. Flow: Minimal deep venous reflux. Nutrition Program Instructor: No significant perforators. Tech Note: Marked ed denia noted in lower leg. Duplicate femoral vein. Incompetent varicose vein distal medial thigh measures 5.2 mm with 0.5s reflux. CONCLUSION: 1. Mild bilateral gr eat saphenous vein reflux with dilatation and saphenofemoral junction reflux 2. Moderate anterior accessory saphenous vein with dilatation 3. Bilateral varicose veins Dictated by: Troy lacy MD on 09/02/2024 at 16:10 Approved by: Troy lacy MD on 09/02/2024 at 16:23 Dictated By: Troy Peck M.D. 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 No Information Medications Medication SIG (Take, Route, Frequency, Duration) Notes Start Date End Date Status OLANZapine 10 mg TAKE 1 TABLET BY ARABELLA TH ONCE DAILY for 30 Active FeroSul 325 (65 Fe) MG 1 tablet Orally t wice a day for 30 days Active Cyanocobalamin 1000 MCG/ML inject 1ml SQ once a month Active metFORMIN HCl 500 MG 1 tablet with a zan l Orally twice a day for 30 days Active Cefdinir 300 MG 2 capsule Orally onc e a day for 10 days 08/19/2024 Active Doxycycline Monohydrate 100 MG 1 capsule Orally bid for 14 days 03/02/2025 Active buPROPion HCl ER (SR) 150 MG 1 tablet Orally twice daily for 30 days 08/27/2023 Active Venlafaxine HCl ER 150 mg TAKE 1 CAPSULE BY MOUTH ONCE DAILY for 90 Active Diclofenac Sodium 75 mg TAKE 1 TABLET BY MOUTH TWICE DAILY for 30 Active Accu-Chek Guide - as directed In Vitro bdi 024 Active Valium 5 MG 1-2 tablet Orally on ce for 1 days 03/19/2024 Active Trulicity 0.75 MG/0.5ML Inject 0.5ml Sub cutaneous once weekly for 28 days Active Triamcinolone Acetonide 0.1 % 1 application Externally Twice a day for 30 02/20/2024 Active Suboxone 8-2 MG 1 film under the ton daya and allow to dissolve Sublingual Once a day Active Cephalexin 500 MG 2 tabs Orally bid fo r 14 days 03/02/2025 Active Rexulti 4 MG 1 tablet Orally Once a day for 30 days 03/02/2025 Active Social History Tobacco Use: Social History Observation Description Date Details (start date - stop date) Former Smoker NA - 12/31/1995 Tobacco Use/Smoking Question Answer Notes Patient is a former smoker When did you stop smoking? 12/31/1995 How long has it been since you last smoked? > 10 years Alcohol Screen (Audit-C) Question Answer Notes Did you have a drink containing alcohol in the p ast year? No Points 0 Interpretation Negative AUDIT-C (Standard) Question Answer Notes Did you have a drink containing alcohol in the p ast year? No Points 0 Interpretation Negative Problems Problem Type SNOMED Code ICD Code Onset Dates Problem Status W/U Status Risk Notes Problem 21706118 Hypothyroidism, unspecified (E03.9) Active confirmed Problem 164729400 Insomnia, unspecified (G47.00) Active confirmed Problem Insomnia (952897038) Insomnia (G47.00) Active c onfirmed Problem Arthralgia (87383839) Arthralgia (M25.50) Active confirmed Problem Kidney stone (22261142) Kidney stones (N20.0) Active confirmed Problem Edema (673558081) Edema leg (R60.0) Active conf irmed Problem Fibrocystic breast changes (16079485) Fibrocystic breast (N60.19) Active confirmed Problem Opioid abuse (5450752) Narcotic abuse (F11.10) Active confirmed Problem Hallucinations (4600652) Auditory hallucination (R44.0) Active confirmed Problem Psychophysical visua l disturbance (72682608) Visual hallucination (R44.1) Active confirmed Problem Mixed anxiety and depressive disorder (542537454) Anxiety and depression (F41.9) Active confirmed Problem Peripheral venous insufficiency (31554941) Venous reflux (I87.2) Active confirmed Problem hypercholesterolemia (disorder) (61065563) Hypercholesteremia (E78.00) Active confirmed Problem Type II diabetes mellitus without complication (083539488) Controlled type 2 diabetes mellitus (E11.9) Active confirmed Problem Hallucinations (7465779) Olfactory hallucination (R44.2) Active confirmed Problem Esophagitis (01267665) Esophagit is (K20.90) Active confirmed Vital Signs Blood pressure diastolic 82 mm Hg 03/02/2025 Height 64 in 03/02/2025 Blood pressure systolic 138 mm Hg 03/02/2025 Weight 226.0 lbs 03/02/2025 BMI 38.79 kg/m2 03/02/2025 Encounters Encounter Location Date Provider Diagnosis [facility] [address] [place] [address] 03/02/2025 Kole Hoy Insomnia G47.00 and Anxiety and depression F41.9 [facility] [address] [place] [address] 08/19/2024 Kole Hoy UTI (urinary tract infection) N39.0 ; Controlled type 2 diabetes mellitus E11.9 ; Insomnia, unspecified G47.00 ; Hypothyroidism, unspecified E03.9 and Edema R60.9 [facility] [address] [place] [address] 07/07/2024 Kole Hoy Diarrhea R19.7 [facility] [address] [place] [facility] [address] 09/02/2024 Kole Butt Controlled type 2 diabetes mellitus E11.9 [facility] [address] [place] [address] 09/02/2024 Kole Butt [facility] [address] [place] [address] 02/24/2025 Kole Butt [facility] [address] [place] [address] 03/16/2025 Kole Butt Insomnia G47.00 [facility] [address] [place] [address] 04/14/2025 Kole Butt Assessments Encounter Date Diagnosis (ICD Code) Assessment Notes Treatment Notes Treatment Clinical Notes Section Notes 08/19/2024 UTI (urinary tract infection) (ICD-10 - N39.0) 08/19/2024 Controlled type 2 diabetes mellitus (ICD-10 - E11.9) 03/02/2025 Insomnia (ICD-10 - G47.00) 03/02/2025 Anxiety and depression (ICD-10 - F41.9) 07/07/2024 Diarrhea (ICD-10 - R19.7) 09/02/2024 Controlled type 2 diabetes mellitus (ICD-10 - E11.9) 03/16/2025 Insomnia (ICD-10 - G47.00) 08/19/2024 Insomnia, unspecified (ICD-10 - G47.00) 08/19/2024 Hypothyroidism, unspecified (ICD-10 - E03.9) 08/19/2024 Edema (ICD-10 - R60.9) Plan Of Treatment Pending Test Test Name Order Date CMP (COMPLETE METABOLIC PANEL) 4 CMP (COMPLETE METABOLIC PANEL) 4 HEMOGLOBIN A1C (GLYCO) 02/20/2024 IRON, TOTAL 02/20/2024 LIPID PANEL (CHOL/TRIG/HDL/LDL) 02/20/20 24 CBC WITH DIFF 02/20/2024 VITAMIN D, 25 LEVEL (TOTAL) 02/20/2024 MRI Brain w/wo contrast * 02/20/2024 T3 FREE, T4 FREE and TSH 03/22/2024 Insulin Level 02/20/2024 STOOL OCCULT BLOOD 02/20/2024 VC VENOUS REFLUX TRESA LMT 08/19/2024 THYROID PANEL (T4/TSH/FREE T3) 4 C difficile Toxin Gene MYKE 07/07/2024 Insurance Providers Payer Name Payer Address Payer Phone Subscriber Number Group Number Insured Name Patient Relationship to Insured Coverage Start Date Coverage End Date [employer] [place] [employer] [address] [address] [place] [address] [id number] Eladia Cordoba Self - patient is the insured 4 [place] [address] OFF[place], [place] [id number] Eladia Cordoba Self - patient is the insured Medical (General) History Medical History History ICD Code Insomnia G47.00 Arthralgia M25.50 Narcotic abuse F11.10 Kidney stones N20.0 Edema leg R60.0 Controlled type 2 diabetes mellitus E11. 9 Plantar fasciitis M72.2 Hypercholesteremia E78.00 Anxiety and depression F41.9 Fibrocystic breast N60.19 Surgical History Surgery Date(Month/Year) Colonoscopy and EGD- Dr. Conrad 05/26/2024 Cystoscopy with stent, Dr. Arroyo 02/06/18
--- OUTSIDE RECORDS SUMMARY | 2025-07-02 18:34 | XMS_ITS | CCD ---
Author Organization [facility] Care Team Providers Care Vehicle Service Attendant Name Role Phone Se Shultz Admitting Unavailable Se Shultz Attending Unavailable Andreas Freed Primary Care Unavailable Rosita Carlson Admitting Unavailable Rosita Carlson Attending Unavailable Andreas Freed Primary Care Unavailable ANDREAS FREED Admitting Unavailable ANDREAS FREED Attending Unavailable ANDREAS FREED Primary Care Unavailable Andreas Freed Primary Care Physician Andreas Freed Referring Unavailable Gerson FERRIS Attending Unavailable Gerson FERRIS Attending Unavailable Allergies Allergy Classification Reported Allergen(s) Allergy Type Date of Onset Reaction(s) Facility (1 source) No Known Medication Allergies; Translations: [No Known Medication Allergies] Propensity to adverse reactions (disorder) [facility] Repository Medications Current Medications Medication Drug Class(es) Dates Sig (Normalized) Sig (Original) buprenorphine 8 mg / naloxone 2 mg sublingual film (1 source) Partial Opioid Agonist, Opioid Antagonist Start: 03-24-2024 Suboxone 8 mg-2 mg sublingual film 1 film, SubLingual, Daily, Refill(s) 0 Start Date: 03/24/24 Status: Ordered 12 hr buPROPion hydrochloride 150 mg extended release oral tablet (1 source) Aminoketone Start: 03-24-2024 take 1 tablet by mouth twice daily buPROPion 150 mg ER Tab 150 mg = 1 tab(s), Oral, BID, Refills(s) 0 Start Date: 03/24/24 Status: Ordered diclofenac sodium 75 mg delayed release oral tablet (1 source) Nonsteroidal Anti-inflammatory Drug Start: 03-24-2024 take 1 tablet by mouth twice daily as needed for pain diclofenac sodium 75 mg Oral EC Tab 75 mg = 1 tab(s), Oral, BID, PRN as needed for pain, Refills(s) 0 Start Date: 03/24/24 Status: Ordered ferrous sulfate 325 mg oral tablet (1 source) Start: 03-24-2024 take 1 tablet by mouth twice daily ferrous sulfate 325 mg Tab 325 mg = 1 tab(s), Oral, BID, Refills(s) 0 Start Date: 03/24/24 Status: Ordered metFORMIN hydrochloride 500 mg oral tablet (1 source) Biguanide Start: 03-24-2024 take 1 tablet by mouth twice daily metformin 500 mg Tab 500 mg = 1 tab(s), Oral, BID, Refills(s) 0 Start Date: 03/24/24 Status: Ordered OLANZapine 10 mg oral tablet (1 source) Atypical Antipsychotic Start: 03-24-2024 take 1 tablet by mouth once daily ZyPREXA 10 mg Tab 10 mg = 1 tab(s), Oral, Daily, Refills(s) 0 Start Date: 03/24/24 Status: Ordered 24 hr venlafaxine 150 mg extended release oral capsule (1 source) Serotonin and Norepinephrine Reuptake Inhibitor Start: 03-24-2024 take 1 capsule by mouth once daily venlafaxine 150 mg Cap-ER 150 mg = 1 cap(s), Oral, Daily, Refills(s) 0 Start Date: 03/24/24 Status: Ordered Problems Problem Classification Problem Date Documented Date Episodic/Chronic Anxiety disorders (1 source) Mixed anxiety and depressive disorder 03-24-2024 Chronic Blindness and vision defects (1 source) Visual hallucinations 03-24-2024 Episodic Calculus of urinary tract (1 source) History of calculus of kidney 03-24-2024 Episodic Deficiency and other anemia (2 sources) Iron deficiency anemia; Translations: [Iron deficiency anemia, unspecified] Onset: Episodic Deficiency and other anemia (1 source) Anemia 03-24-2024 Episodic Diabetes mellitus without complication (1 source) Diabetes mellitus 03-24-2024 Chronic Disorders of lipid metabolism (1 source) Hypercholesterolemia 03-24-2024 Chronic Nonmalignant breast conditions (1 source) Fibrocystic disease of breast 03-24-2024 Chronic Nutritional deficiencies (1 source) Cobalamin deficiency 03-24-2024 Episodic Other diseases of kidney and ureters (1 source) Renal impairment 03-24-2024 Episodic Other nutritional; endocrine; and metabolic disorders (1 source) Body mass index 30+ - obesity 04-06-2024 Chronic Other nutritional; endocrine; and metabolic disorders (1 source) Obese class III 04-06-2024 Chronic Residual codes; unclassified (1 source) Auditory hallucinations 03-24-2024 Episodic Residual codes; unclassified (1 source) Insomnia 03-24-2024 Episodic Residual codes; unclassified (1 source) Olfactory hallucinations 03-24-2024 Episodi c Substance-related disorders (1 source) Psychoactive substance abuse 03-24-2024 Chronic Thyroid disorders (1 source) Hypothyroidism 03-24-2024 Chronic Unclassified (1 source) S42.214D - Unspecified nondisplaced fracture of surgical neck of right humerus, subsequent encounter for fracture with routine healing; Translations: [S42.214D - Unspecified nondisplaced fracture of surgical neck of right humerus, subsequent encounter for fracture with routine healing] Onset: 9 Unclassified (1 source) M25.511 - Pain in right shoulder; Translations: [M25.511 - Pain in right shoulder] Onset: 9 Results Test Name Value Interpretation Reference Range Facil ity Lab Reportson 05-26-2024 Lab Reports [id number]#1.00 TIFF [facility] Consent for Procedure/Surger yon 04-12-2024 Consent for Procedure/Surgery [id number] TIFF [facility] Facesheeton 04-07-2024 Facesheet [id number]#1.0 0TIFF [facility] Ambulatory Visit Summaryon 0 04-06-2024 Ambulatory Visit Summary ELADIA CORDOBA :1960 Visit Date:04/06/2024 Ambulatory Visit Instructions Your Care Team Attending Physician - BARRINGTON HUFF, Gerson Hirsch Primary Care Physician - Daquan HUFF, Andreas Referring Physician - Andreas Freed MD This Is Your Medications List Contact prescribing physician if questions or concerns buPROPion (buPROPion 150 mg ER Tab) buprenorphine-naloxone (Suboxone 8 mg-2 mg sublingual film) diclofenac (diclofenac sodium 75 mg Oral EC Tab) ferrous sulfate (ferrous sulfate 325 mg Tab) metformin (metformin 500 mg Tab) olanzapine (ZyPREXA 10 mg Tab) venlafaxine (venlafaxine 150 mg Cap-ER) Procedures Performed Lori-en-y gastric bypass (2000), Cystoscopy. Discharge Vitals Heart Rate (Peripheral) 76 Respiratory Rate 16 Blood Pressure 128/82 Height 162.5 cm Height 64 in Weight 94.6 kg Weight 208.12 lb BMI 35.82 Medications What How Much When Instructions Unchanged buprenorphine-naloxone (Suboxone 8 mg-2 mg sublingual film) 1 film Sublingual Every day Contact prescribing physician if questions or concerns Unchanged buPROPion (buPROPion 150 mg ER Tab) 1 Tablets By Mouth 2 times a day Contact prescribing physician if questions or concerns Unchanged diclofenac (diclofenac sodium 75 mg Oral EC Tab) 1 Tablets By Mouth 2 times a day as needed for as needed for pain Contact prescribing physician if questions or concerns Unchanged ferrous sulfate (ferrous sulfate 325 mg Tab) 1 Tablets By Mouth 2 times a day Contact prescribing physician if questions or concerns Unchanged metformin (metformin 500 mg Tab) 1 Tablets By Mouth 2 times a day Contact prescribing physician if questions or concerns Unchanged olanzapine (ZyPREXA 10 mg Tab) 1 Tablets By Mouth Every day Contact prescribing physician if questions or concerns Unchanged venlafaxine (venlafaxine 150 mg Cap-ER) 1 Capsules By Mouth Every day Contact prescribing physician if questions or concerns Allergies No Known Allergies No Known Medication Allergies Problems Ongoing - Any problem that you are currently receiving treatment for. Anemia Anxiety and depression Auditory hallucinations BMI 35.0-35.9,adult Class 3 obesity Diabetes Fibrocystic breast History of nephrolithiasis Hypercholesterolemia Hypothyroidism Impaired renal function Insomnia Narcotic abuse Olfactory hallucinations Visual hallucination Vitamin B12 deficiency Patient Survey You may receive a survey via text or e-mail asking about your office visit. Please share your experience with us by completing your survey. We appreciate your feedback and thank you for choosing us for your care. Normal [facility] Lab Reportson 03-25-2024 Lab Reports [id number] 0TIFF Normal [facility] Physician Referralon 024 Physician Referral [id number] 0TIFF [facility] XR shoulder RT min 2V*on XR shoulder RT min 2V* [address] [address] XRay Report Signed Patient: Eladia Cordoba MR#: [id number] : 1960 Acct:[id number] Age/Sex: 58 / F ADM Date: 03/24/19 Loc: [facility] Room: Type: REG CLI Attending Dr: Rosita Carlson DIRECTOR OF ARCHIVES-C Ordering Provider: Se Shultz MD Date of Service: 03/24/19 XR/XR shoulder RT min 2V*: Unspecified nondisplaced fracture of surgical neck of right Copies to: MD Rosita Zuniga, [employer] 2 views RIGHT shoulder COMPARISON: 03/03/19 HISTORY: Follow-up assessment of proximal RIGHT humerus fracture. Bony alignment of fracture fragments of the proximal humerus are unchanged. Callus formation surrounds the fractures consistent with interval healing. XR/XR shoulder RT min 2V* IMPRESSION: Healing proximal humeral fracture. Impression dictated by: Mike Maya M.D.03/24/2019 3:59 PM Dictation Location: [facility] Transcribed By: [facility] 03/24/19 1559 Dictated By: Mike Maya DO 03/24/19 1556 Signed By: 03/24/19 1559 [facility] XR shoulder RT min 2V*on XR shoulder RT min 2V* [facility] Main [address] [address] XRay Report Signed Patient: Eladia Cordoba MR#: [id number] : 1960 Acct:[id number] Age/Sex: 58 / F ADM Date: 03/03/19 Loc: [facility] Room: Type: REG CLI Attending Dr: Se Shultz MD Ordering Provider: Se Shultz MD Date of Service: 03/03/19 XR/XR shoulder RT min 2V*: M25.511, S42.214A Copies to: Se Shultz MD Right shoulder 03/03/2019. CLINICAL DATA: Follow-up right shoulder fracture. FINDINGS: 2 views of the right shoulder were obtained and are compared with a prior study 2018 ([facility]). There is redemonstration of a comminuted and mildly displaced fracture of the surgical neck of the proximal humerus. No other fracture is identified. No dislocation is seen. XR/XR shoulder RT min 2V* IMPRESSION: Comminuted fracture at the surgical neck of the proximal right humerus. Impression dictated by: Tanner Vega Jr., M.D.03/03/2019 5:20 PM Dictation Location: [facility] Transcribed By: JOB 03/03/19 172 Dictated By: Tanner Vega MD 03/03/191716 Signed By: 03/03/19 172 [facility] Vital Signs Date Time Vital Sign Value Performing Clinician Faci sil 04-06-2024 15:49-0400 Blood Pressure Location Gerson FERRIS [facility] 04-06-2024 15:49-0400 Diastolic blood pressure 82 mm[Hg] Gerson FERRIS [facility] 04-06-2024 15:49-0400 Heart rate 76 /min Gerson SMITHL [facility] 04-06-2024 15:49-0400 Respiratory rate 16 /min Gerson FERRIS [facility] 04-06-2024 15:49-0400 Systolic blood pressure 128 mm[Hg] Gerson SMITHL [facility] Encounters Encounter Date Encounter Type Care Provider Facility Start: 05-26-2024 End: 05-26-2024 ambulatory Gerson FERRIS Facility:CD:[id number] Start: 04-06-2024 End: 04-06-2024 ambulatory Andreas Freed Facility: [facility] Start: 04-06-2024 End: 04-06-2024 Patient encounter procedure Gerson Joycelyn NILL [facility] Start: 03-22-2024 ambulatory Andreas Freed Facility:[facility] Start: 08-28-2020 Patient encounter procedure ANDREAS FREED Facility:[facility] Start: 03-24-2019 End: 03-24-2019 Patient encounter procedure Rosita Uma Carlson Facility:[facility] Start: 03-03-2019 End: 03-03-2019 Patient encounter procedure Se Shultz Facility:[facility] Procedures Date Procedure Procedure Detail Performing Clinician Start: 12-01-2000 Lori-en-Y gastrojejunostomy Gerson NILL Transurethral cystoscopy Mustapha kendell NILL Immunizations Immunization Date Immunization Notes Care Provider Fa cility 08-30-2021 SARS-CoV-2 (COVID-19 ) mRNA BNT-162b2 vax Gerson NILL [facility] Comment on above: Result Comment: 2023: [id number] 08-09-2021 SARS-CoV-2 (COVID-19 ) mRNA BNT-162b2 vax Gerson NILL [facility] Comment on above: Result Comment: 2023: [id number] Payers Date Payer Category Payer Private Health Insurance [id number] 2019 Self-pay 1960 Unknown [id number] .[id number] 1960 Unknown [id number] 1960 Unknown [id number] 1958 Private Health Insurance [id number] Unknown [id number] .16.84 [id number] Unknown [id number] Social History Date Type Detail Facility Start: 04-06-2024 Tobacco smoking status Ex-smoker (fi nding) [facility] Sex Assigned At Female [facility] Functional Status Date Assessment Result Facility 04-06-2024 Functional Status N/A [facility] Clinical Note 04-06-2024 Note Date & Type Note Facility 04-06-2024 Note Chief Complaint consultation for anemia HPI Staff 63 year old female presents on consultation from Dr. Freed for anemia. Labs completed 03/22 with H/H 10.0 and 32.6, iron 48. Never had colonoscopy in the past. No known family history of colon cancer. Denies abdominal or rectal pain. No rectal bleeding or change in bowel habits. Denies nausea or vomiting. No unexplained weight loss. Reports SOB on exertion and fatigue. Denies dizziness or lightheadedness. Patient with history of gastric bypass in 2000. History of Present Illness 63 yo female with h/o DMII, hypothyroidism, hyperlipidemia, narcotic abuse, on Suboxone, referred for iron deficiency anemia; patient denies change in bms or blood in stools, no abd complaints; no previous colonoscopy; abdominal operations significant for gastric bypass in 2000; no fmhx of GI malignancy or IBD; no h/o ulcer disease; on Diclofenac daily, no asa; increased stress lately; no tobacco use. Review of Systems PHQ Score Initial Depression Screen Score: 0 SCORE ROS - Provider Constitutional: no fever, no sweats, no weight loss. Eyes: no glasses, no blurred vision, no visual loss. ENMT: no dentures, no hoarseness, no swallowing difficulties, no hearing loss, no ear infection(s), no nose bleeds. Cardiovascular: normal blood pressure, no chest pain, regular heartbeat, no heart murmur. Respiratory: no shortness of breath, no cough, no asthma, no wheezing. Gastrointestinal: no nausea, no vomiting, no diarrhea, no constipation, no blood in stool, no change in bowel habits, no abdominal pain, no hepatitis. Genitourinary: no kidney stones, no urine infection, no dysuria. Musculoskeletal: no pain, no weakness. Skin: no changing moles, no rash, no skin lumps. Neurologic: no seizures, no epilepsy, no headache. Psychiatric: no emotional or psychiatric problem. Heme/Lymph: no bleeding problems, no anemia, no blood clots, no transfusions. Allergy/Immunologic: no swollen lymph nodes/glands, no IV drug abuse. Other: Additional ROS info: Except as noted in the above Review of Systems and in the History of Present Illness, all other systems have been reviewed and are negative or noncontributory. Physical Exam Vitals & Measurements HR: 76(Peripheral) RR: 16 BP: 128/82 HT: 64 in HT: 162.5 cm WT: 94.6 kg WT: 208.12 lb BMI: 35.82 HEENT: normal conjunctiva, sclera clear, no scleral icterus, EOM intact, PERRLA, oral mucosa moist without lesions. Neck: trachea midline, no mass, symmetric, no thyromegaly or nodules, no adenopathy Respiratory: lungs CTA, respirations non labored. Cardiovascular: regular rate and rhythm, no murmur, no pedal edema or varicosities. Gastrointestinal: obese, soft, non distended, no tenderness, no masses, no palpable hernias, well-healed upper midline incision; diastasis recti yes, no hepatosplenomegaly; normal bs Lymphatic: no cervical adenopathy, no supraclavicular adenopathy. Musculoskeletal: normal gait, digits and nails without infection, nodes, cyanosis, clubbing. Skin: no rashes, no lesions, no ulcers, no subcutaneous nodules, induration. Psychiatric/Neuro: oriented to time, place, person, judgement normal, affect appropriate for age, insight intact, no focal deficits. Tests: labs reviewed,review of old records completed , Discussed surgical options, risks, and possible complications with patient. Assessment/Plan 1. Iron deficiency anemia (D50.9: Iron deficiency anemia, unspecified) plan EGD and colonoscopy under anesthesia, informed consent obtained. Follow-up No qualifying data available Problem List/Past Medical History Ongoing Anemia Anxiety and depression Auditory hallucinations BMI 35.0-35.9,adult Class 3 obesity Diabetes Fibrocystic breast History of nephrolithiasis Hypercholesterolemia Hypothyroidism Impaired renal function Insomnia Iron deficiency anemia Narcotic abuse Olfactory hallucinations Visual hallucination Vitamin B12 deficiency Historical No qualifying data Procedure/Surgical History Lori-en-y gastric bypass (2000), Cystoscopy. Medications buPROPion 150 mg ER Tab, 150 mg= 1 tab(s), Oral, BID diclofenac sodium 75 mg Oral EC Tab, 75 mg= 1 tab(s), Oral, BID, PRN ferrous sulfate 325 mg Tab, 325 mg= 1 tab(s), Oral, BID metformin 500 mg Tab, 500 mg= 1 tab(s), Oral, BID Suboxone 8 mg-2 mg sublingual film, 1 film, SubLingual, Daily venlafaxine 150 mg Cap-ER, 150 mg= 1 cap(s), Oral, Daily ZyPREXA 10 mg Tab, 10 mg= 1 tab(s), Oral, Daily Allergies No Known Allergies No Known Medication Allergies Social History Alcohol - Denies Alcohol Use, 04/06/2024 Substance Abuse - Denies Substance Abuse, 04/06/2024 Tobacco Former smoker, quit more than 30 days ago Tobacco Use:. Cigarettes, 2 per day. Started age 17.0 Years. Stopped age 36 Years., 04/06/2024 Family History Parkinson disease: Father. Primary malignant neoplasm of female breast: Mother. Immunizations Vaccine Date Status Comments SARS-Co (more content not included)... [facility] Comment on above: Result Comment: Elec tronically Signed By: BARRINGTON HUFF, Gerson Hirsch\aníbal\Date and Time Signed: 04/06/24 16:26 EDT Evaluation + Plan note Note Date & Type Note Facility Evaluation + Plan note No data available for this section [facility] Discharge instructions Note Date & Type Note Facility Hospital Discharge instructions No data available for this section [facility] Progress note Note Date & Type Note Facility Progress note No data available for this section [facility] Summary Purpose Family History No Family History Records FoundNo Family History Records Found No data available for this section No Family History Records Found Advance Directives No Advanced Directives Records FoundNo Advanced Directives Records FoundNo Advanced Directives Records Found Additional Source Comments INFORMATION SOURCE (unrecogn ized section and content) DATE CREATED AUTHOR 03/26/2019 [facility] DATE CREATED AUTHOR AUTHOR'S ORGANIZ ATION 08/27/2020 [facility] DATE CREATED AUTHOR AUTHOR'S ORGANLUBNA ATION 05/30/2024 [facility] Patient Care team informbreeo n (unrecognized section and content) Personnel Name: Andreas Freed MD Address: Address: [address] [place], [place] [address], [place] [address] FOR RECORDS PERTAINING TO PATIENTS WHO ARE OR HAVE BEEN ENROLLED IN A CHEMICAL DEPENDENCY/SUBSTANCEABUSE PROGRAM, SOME INFORMATION MAY BE OMITTED. This clinical summary was aggregated from multiple sources. Caution should be exercised in using it in the provision of clinical care. This summary normalizes information from multiple sources, and as a consequence, information in this document may materially change the coding, format and clinical context of patient data. In addition, data may be omitted in some cases. CLINICAL DECISIONS SHOULD BE BASED ON THE PRIMARY CLINICAL RECORDS. [facility] [employer] provides no warranty or guarantee of the accuracy or completeness of information in this document.
[2025-07-02 18:38] VITALS: BP 120/93; PULSE 110; TEMP 36.8; O2SAT 97; BMI 37.8
[2025-07-02 18:43] VITALS: PULSE 106
--- NOTE | 2025-07-02 18:46 | ECG_ITS ---
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 Measurements Intervals [place] Rate: 105 P: 51 TX: 144 QRS: -7 QRSD: 84 T: 21 QT: 324 QTc: 385 Interpretive Statements 1120 Sinus tachycardia 3113 Cannot rule out anterior myocardial infarction, probably old 8102 Low QRS voltage in chest leads 9150 abnormal ECG No previous ECG available for comparison Electronically Signed On 07-02-2025 21:34:49 EDT by TREVIN CASEY M.D.
--- NOTE | 2025-07-02 18:50 | XR_ITS ---
[place] [id number] Patient Name: ELADIA CORDOBA MRN: [id number] date: 1960 Sex: F Assigned Patient Location: ER Current Patient Location: ED.MAIN Accession/Order Number: [id number] Exam Date: 07/03/2025 08:17 Report Date: 07/03/2025 08:19 At the request of: NAOMI MYERS Procedure: XR chest 1V XR chest 1V 07/02/2025 7:23 PM SIGNS AND SYMPTOMS: ^Shortness of breath PROTOCOL: Frontal radiograph of the chest COMPARISON: None FINDINGS: The trachea is midline. The heart and mediastinal structures are within normal limits. There is linear scarring in the right lung base. The bony thorax is intact. Degenerative changes are noted in the shoulders and thoracic spine. XR/XR chest 1V IMPRESSION: There is linear scarring in the right lung base. No focal consolidation otherwise. Impression dictated by: Yang Starks M.D. 07/03/2025 8:19 AM Dictation Location: [employer] Electronically authenticated by: [id number] Date: 07/03/2025 08:19
--- NOTE | 2025-07-02 18:55 | ED.SOB1 ---
HPI - SOB/Dyspnea General Chief Complaint: Shortness of Breath/Dyspnea Stated Complaint: SOB Time Seen by Provider: 07/02/25 18:43 Source: patient and family Mode of arrival: walk-in Limitations: no limitations History of Present Illness HPI Narrative: Patient is a 64-year-old female who presents to the emergency department for evaluation of an episode of shortness of breath at home prior to arrival. She states she woke up from a nap this afternoon and felt as though there was something stuck in her chest preventing her from breathing. She states she felt tight but had no chest pain. She states she coughed vigorously and that seemed to clear the sensation. She states she was nervous and wanted to be evaluated however she has no significant focal medical complaints at this time. She has chronic lower extremity swelling that is monitored by her PCP. She denies fevers, persistent upper respiratory symptoms. No vomiting or diarrhea. No hemoptysis. Related Data Home Medications ?Medication ?Instructions ?Recorded ?Confirmed buprenorphine 8 mg-naloxone 2 mg 1 film buccal DAILY 05/21/24 07/02/25 sublingual film (Suboxone) bupropion HCl 150 mg 24 hr tablet, 150 mg PO BID 05/21/24 07/02/25 extended release diclofenac sodium 75 mg 75 mg PO BID PRN pain 05/21/24 07/02/25 tablet,delayed release ferrous sulfate 325 mg (65 mg 325 mg PO BID 05/21/24 07/02/25 iron) tablet (FeroSul) metformin 500 mg tablet 500 mg PO BID 05/21/24 07/02/25 venlafaxine 150 mg 150 mg PO DAILY 05/21/24 07/02/25 capsule,extended release 24 hr brexpiprazole 2 mg tablet (Rexulti) 4 mg PO DAILY 07/02/25 07/02/25 dulaglutide 0.75 mg/0.5 mL 0.75 mg subcut .WEEKLY 07/02/25 07/02/25 subcutaneous pen injector (Trulicity) Previous Rx's ?Medication ?Instructions ?Recorded albuterol sulfate 90 mcg/actuation 2 inh inhalation Q4H PRN shortness 07/02/25 aerosol inhaler of breath or wheezing #8.5 grams Allergies Allergy/AdvReac Type Severity Reaction Status Date / Time No Known Drug Allergies Allergy Verified 07/02/25 18:38 Review of Systems ROS Constitutional Denies: fever or chills Ears, nose, mouth, and throat Denies: throat pain or mouth pain Respiratory Reports: shortness of breath and cough Gastrointestinal Denies: nausea or vomiting Musculoskeletal Reports: extremity swelling; Denies: back pain or neck pain Integumentary/Breast Denies: rash Hematologic/Lymphatic Denies: easy bruising or easy bleeding [facility] Medical History (Updated 07/02/25 @ 20:41 by LUCIA Mckenzie) Varicose veins of bilateral lower extremities with pain ?I83.813 - Varicose veins of bilateral lower extremities with pain (ICD-10) Bilateral leg edema ?R60.0 - Localized edema (ICD-10) Vitamin B12 deficiency ?E53.8 - Deficiency of other specified B group vitamins (ICD-10) Visual hallucinations ?R44.1 - Visual hallucinations (ICD-10) Olfactory hallucinations ?R44.2 - Other hallucinations (ICD-10) Narcotic abuse ?F11.10 - Opioid abuse, uncomplicated (ICD-10) Iron deficiency anemia ?D50.9 - Iron deficiency anemia, unspecified (ICD-10) Insomnia ?G47.00 - Insomnia, unspecified (ICD-10) Impaired renal function ?N28.9 - Disorder of kidney and ureter, unspecified (ICD-10) Hypothyroidism ?E03.9 - Hypothyroidism, unspecified (ICD-10) Hypercholesterolemia ?E78.00 - Pure hypercholesterolemia, unspecified (ICD-10) Nephrolithiasis ?N20.0 - Calculus of kidney (ICD-10) Fibrocystic breast ?N60.19 - Diffuse cystic mastopathy of unspecified breast (ICD-10) Diabetes ?E11.9 - Type 2 diabetes mellitus without complications (ICD-10) Obesity ?E66.9 - Obesity, unspecified (ICD-10) Auditory hallucination ?R44.0 - Auditory hallucinations (ICD-10) Anxiety and depression ?F41.9 - Anxiety disorder, unspecified (ICD-10) ?F32.A - Depression, unspecified (ICD-10) Anemia ?D64.9 - Anemia, unspecified (ICD-10) Surgical History (Updated 07/03/24 @ 09:48 by Celina Muhammad) H/O cystoscopy ?Z98.890 - Other specified postprocedural states (ICD-10) H/O gastric bypass ?Z98.84 - Bariatric surgery status (ICD-10) Family History (Updated 05/21/24 @ 07:57 by Sol Rea RN) Other Malignant neoplasm of breast (female) Parkinsons disease Social History Within the past year, how often did you have a drink containing alcohol: never Score interpretation: A score less than 3 is consistent with normal alcohol consumption. Smoking status: Former smoker Second hand tobacco smoke exposure: Yes Non-prescribed substance use: denies use Non-prescribed substance use details: does have previous narcotic abuse history Previous occupational history: homemaker Highest level of school completed/degree received: high school graduate Little interest or pleasure in doing things: not at all Feeling down, depressed, or hopeless: not at all Exam Narrative Exam Narrative: Gen.: Awake, alert, in no distress Head: Normocephalic, atraumatic ENT: Moist mucous membranes Respiratory: No respiratory distress, lungs clear bilaterally, no wheezing or rhonchi. Speaks in full sentences. Cardio: Regular rate and rhythm Extremities: Moves extremities equally Psych: Normal mood and affect Neuro: No focal neuro deficit Skin: Warm, dry, intact Constitutional Vital Signs, click to edit/add: Last Vital Signs Temp 98.3 F 07/02/25 18:38 Pulse 106 H 07/02/25 20:11 Resp 20 07/02/25 20:11 BP 119/82 07/02/25 20:11 Pulse Ox 95 07/02/25 20:11 O2 Del Method Room Air 07/02/25 20:11 Course Vital Signs Vital signs: Vital Signs Temperature 98.3 F 07/02/25 18:38 Pulse Rate 110 H 07/02/25 18:38 Respiratory Rate 18 07/02/25 18:38 Blood Pressure 120/93 H 07/02/25 18:38 Pulse Oximetry 97 07/02/25 18:38 Oxygen Delivery Method Room Air 07/02/25 18:38 Temperature 98.3 F 07/02/25 18:38 Pulse Rate 106 H 07/02/25 20:11 Respiratory Rate 20 07/02/25 20:11 Blood Pressure 119/82 07/02/25 20:11 Pulse Oximetry 95 07/02/25 20:11 Oxygen Delivery Method Room Air 07/02/25 20:11 MDM - SOB/Dyspnea MDM Narrative Medical decision making narrative: Labs unremarkable, BNP is minimally elevated and sodium is low. Patient given a breathing treatment. She is hemodynamically stable in the ER. She has no complaints of chest pain, she states her shortness of breath was resolved on arrival. Do not feel her symptoms represent a pulmonary embolism as they were brief, associated with cough and cleared. She is encouraged to follow-up with PCP and return to the emergency department if symptoms change or worsen. Medical Records Attestation: I reviewed the patient's medical records. Lab Data Attestation: I reviewed the patient's lab results. Labs: Lab Results 07/02/25 Range/Units 19:04 WBC 9.1 (4.0-11.0) 10^3/uL RBC 3.73 L (4.20-5.40) 10^6/uL Hgb 11.5 L (12.0-16.0) g/dL Hct 34.3 L (36.0-48.0) % MCV 92.0 (81.0-99.0) fL MCH 30.8 (26.7-34.0) pg MCHC 33.5 (29.9-35.2) g/dL RDW 13.4 (11.0-15.0) % Plt Count 269 (150-450) 10^3/uL MPV 9.0 L (9.5-13.5) fL Seg Neuts % (Manual) 90.0 H (43.0-75.0) Lymphocytes % (Manual) 5.0 L (20.5-60.0) % Monocytes % (Manual) 4.0 (1.7-12.0) % Eosinophils % (Manual) 1.0 (0.9-7.0) % Basophils % (Manual) 0.0 L (0.2-2.0) % Neutrophils # (Manual) 8.19 H (1.4-6.5) 10^3/uL Lymphocytes # (Manual) 0.45 L (1.20-3.80) 10^3/uL Monocytes # (Manual) 0.36 (0.30-0.80) 10^3/uL Eosinophils # (Manual) 0.09 (0.00-0.70) 10^3/uL Basophils # (Manual) 0.00 (0.00-0.10) 10^3/uL PT 10.7 (9.0-11.6) sec INR 1.01 Sodium 131 L (136-145) mmol/L Potassium 4.0 (3.5-5.1) mmol/L Chloride 98 (98-107) mmol/L Carbon Dioxide 24.5 (21.0-32.0) mmol/L Anion Gap 12.5 BUN 25.0 H (7.0-18.0) mg/dL Creatinine 1.69 H (0.55-1.02) mg/dL Est GFR ( Amer) 37 L (>=60 mL/min/1.73m^2) Est GFR (Non-Af Amer) 31 L (>=60 mL/min/1.73m^2) BUN/Creatinine Ratio 14.8 Glucose 180 H (74-106) mg/dL Calcium 8.9 (8.5-10.1) mg/dL Magnesium 2.2 (1.8-2.4) mg/dL Total Bilirubin 0.3 (0.2-1.0) mg/dL AST 30 (15-37) U/L ALT 31 (14-59) U/L Alkaline Phosphatase 117 H (46-116) U/L Troponin I High Sens 11.6 (4.0-51.3) pg/mL NT-Pro-B Natriuret Pep 1103.0 H (<=900.0) pg/mL Total Protein 7.2 (6.4-8.2) g/dL Albumin 3.0 L (3.4-5.0) g/dL Globulin 4.2 g/dL Albumin/Globulin Ratio 0.7 Imaging Data Chest x-ray: Attestation: I personally reviewed and interpreted this imaging study as follows: ECG Data Attestation: ?I have reviewed the pertinent ECG results. (Sinus tachycardia at a rate of 101, no acute ST elevation or ectopy. EKG reviewed by attending physician) Discharge Plan Discharge Chief Complaint: Shortness of Breath/Dyspnea Clinical Impression: Shortness of breath Patient Disposition: Home, Self-Care Time of Disposition Decision: 20:40 Condition: Good Prescriptions / Home Meds: New albuterol sulfate 90 mcg/actuation HFA aerosol inhaler 2 inh inhalation Q4H PRN (Reason: shortness of breath or wheezing) Qty: 8.5 0RF No Action Rexulti 2 mg tablet 4 mg PO DAILY Trulicity 0.75 mg/0.5 mL pen injector 0.75 mg SUBCUT .WEEKLY Rx Instructions: MONDAYS bupropion HCl 150 mg tablet extended release 24 hr 150 mg PO BID diclofenac sodium 75 mg tablet,delayed release (DR/EC) 75 mg PO BID PRN (Reason: pain) ferrous sulfate [FeroSul] 325 mg (65 mg iron) tablet 325 mg PO BID metformin 500 mg tablet 500 mg PO BID buprenorphine-naloxone [Suboxone] 8-2 mg film 1 film buccal DAILY venlafaxine 150 mg capsule,extended release 24hr 150 mg PO DAILY Print Language: Andorran Instructions: How Your Lungs Work (ED) Referrals: Emmanuel Butt MD [Primary Care Provider, Family Practice] - 1 week
--- NOTE | 2025-07-02 19:09 | PC.NURSE ---
pt woke up from her nap and felt like she was SOB/like something was stuck in throat. coughed and gagged and it resolved. pt is anxious
[2025-07-02] MEDS: ALBUTEROL SULFATE 2.5 MG/3 ML VIAL NEB IH (19:17)
[2025-07-02 19:19] VITALS: PULSE 102; O2SAT 97
[2025-07-02 19:28] LABS: Hematocrit 34.3 % (36.0-48.0); Hemoglobin 11.5 g/dL (12.0-16.0); Mean Corpuscular HGB Conc 33.5 g/dL (29.9-35.2); Mean Corpuscular Hemoglobin 30.8 pg (26.7-34.0); Mean Corpuscular Volume 92.0 fL (81.0-99.0); Platelet Count 269 10^3/uL (150-450); Red Blood Count 3.73 10^6/uL (4.20-5.40); White Blood Count 9.1 10^3/uL (4.0-11.0)
[2025-07-02 19:31] LABS: INR 1.01; Prothrombin Time 10.7 sec (9.0-11.6)
[2025-07-02 19:32] VITALS: BP 114/78; PULSE 104; O2SAT 96
[2025-07-02 19:33] VITALS: O2SAT 96
[2025-07-02 19:42] LABS: Alanine Aminotransferase 31 U/L (14-59); Albumin Globulin Ratio 0.7; Albumin Level 3.0 g/dL (3.4-5.0); Alkaline Phosphatase 117 U/L (46-116); Anion Gap 12.5; Aspartate Amino Transferase 30 U/L (15-37); Blood Urea Nitrogen 25.0 mg/dL (7.0-18.0); Calcium 8.9 mg/dL (8.5-10.1); Carbon Dioxide 24.5 mmol/L (21.0-32.0); Chloride 98 mmol/L (98-107); Estimated GFR (African America 37 (>=60 mL/min/1.73m^2); Estimated GFR (Non-African Ame 31 (>=60 mL/min/1.73m^2); Globulin 4.2 g/dL; Glucose 180 mg/dL (74-106); Magnesium 2.2 mg/dL (1.8-2.4); NT Pro B Type Natriuretic Pept 1103.0 pg/mL (<=900.0); Potassium 4.0 mmol/L (3.5-5.1); Sodium 131 mmol/L (136-145); Total Protein 7.2 g/dL (6.4-8.2)
[2025-07-02 20:11] VITALS: BP 119/82; PULSE 106; O2SAT 95
[2025-07-02 20:11] LABS: Lymphocytes Absolute Manual 0.45 10^3/uL (1.20-3.80); Lymphocytes Percent Manual 5.0 % (20.5-60.0); Monocytes Absolute Manual 0.36 10^3/uL (0.30-0.80); Monocytes Percent Manual 4.0 % (1.7-12.0)
[2025-07-02 20:12] LABS: Basophils Abs Manual 0.00 10^3/uL (0.00-0.10); Basophils Percent Manual 0.0 % (0.2-2.0); Eosinophils Absolute Manual 0.09 10^3/uL (0.00-0.70); Eosinophils Percent Manual 1.0 % (0.9-7.0); Segmented Neut Absolute Manual 8.19 10^3/uL (1.4-6.5); Segmented Neutrophils % Manual 90.0 (43.0-75.0)
== END 2025-07-02 20:58 | disposition home or self-care (01) ==
PROVIDERS: Physician Assistant; Emergency Provider Emergency Medicine; PCP Family Medicine
DX: R06.02 Shortness of breath (principal); Z98.84 Bariatric surgery status; Z87.891 Personal history of nicotine dependence; F19.11 Other psychoactive substance abuse, in remission
CPT/HCPCS: 36415; 71045; 80053; 83735; 83880; 84484; 85007; 85027; 85610; 93005; 94640; 99285